=== PATIENT | female | born 1935 | race Caucasian/White ===

== ENCOUNTER 2018-09-29 18:28 | Inpatient (IN) | payer MEDICARE, OTHER ==
[2018-09-29] MEDS: ALBUTEROL 0.5% (NEB) 2.5 MG/0.5 ML AMP INH ×2 (19:00→21:01)
[2018-09-29] MEDS: IPRATROPIUM (NEB) 0.5 MG/2.5 ML AMP INH ×2 (19:00→21:01)
[2018-09-29 19:12] LABS: ADD MAN DIFF? NO
[2018-09-29 19:16] LABS: BASOPHILS % 0.3 % (0.0-2.0); EOSINOPHILS # 0.2 10^3/ul (0.0-0.5); EOSINOPHILS % 2.3 % (0.0-7.0); HEMATOCRIT 45.3 % (37.0-47.0); HEMOGLOBIN 13.8 g/dl (12.0-16.0); LYMPHOCYTES # 1.7 10^3/ul (0.8-2.9); LYMPHOCYTES % 24.3 % (15.0-51.0); MEAN CORPUSCULAR HEMOGLOBIN 25.3 pg (29.0-33.0); MEAN CORPUSCULAR HGB CONC 30.5 g/dl (32.0-37.0); MEAN PLATELET VOLUME 9.4 fl (7.4-10.4); MONOCYTE # 0.5 10^3/ul (0.3-0.9); MONOCYTES % 7.5 % (0.0-11.0); NEUTROPHIL # 4.7 10^3/ul (1.6-7.5); NEUTROPHILS % 65.3 % (39.0-77.0); PLATELET COUNT 295 10^3/UL (140-415); RED BLOOD COUNT 5.46 10^6/ul (4.20-5.40); RED CELL DISTRIBUTION WIDTH 15.5 % (11.5-14.5)
[2018-09-29 19:16] LABS: WHITE BLOOD COUNT 7.1 10^3/ul (4.8-10.8)
[2018-09-29] MEDS: METHYLPREDNISOLONE 125 MG INJ IV (19:19)
[2018-09-29] MEDS: MAGNESIUM SULFATE 2 GM/50 ML 50 ML IVPB (19:20)
[2018-09-29 19:34] LABS: ANION GAP 12 (5-13); BLOOD UREA NITROGEN 14 mg/dl (7-20); CALCIUM 9.6 mg/dl (8.4-10.2); CARBON DIOXIDE 30 mmol/L (21-31); CHLORIDE 102 mmol/L (97-110); CREATININE 0.74 mg/dl (0.44-1.00); GLUCOSE 135 mg/dl (70-220); POTASSIUM 4.4 mmol/L (3.5-5.1); SODIUM 144 mmol/L (135-144)
[2018-09-29 19:45] LABS: B-TYPE NATRIURETIC PEPTIDE 205 PG/ML (0-450); TROPONIN-I < 0.012 ng/ml (0.000-0.120)
[2018-09-29] MEDS ORDERED: PROPOFOL 100 ML (20:18)
[2018-09-29] MEDS: SUCCINYLCHOLINE CHLORIDE 100 MG/5 ML SYG IV (20:26)
[2018-09-29] MEDS: ETOMIDATE 20 MG INJ IV (20:26)
[2018-09-29] MEDS: FENTAnyl 50 MCG/ML VIAL IV (20:46)
[2018-09-29] MEDS: PROPOFOL 100 ML IV (20:52)
[2018-09-29] MEDS: CEFEPIME 2GM/50 ML (PMX) 50 ML IVPB (20:52)
[2018-09-29] MEDS: VANCOMYCIN 1 GM (PMX) 250 ML IVPB (21:18)
[2018-09-29] MEDS: SOD CHLORIDE 0.9% 1,000 ML IV (21:19)
[2018-09-29] MEDS: SODIUM CHLORIDE 0.9% 1L BAG IV* (21:27)
[2018-09-29] MEDS: MIDAZOLAM (DRIP) 50 mg/50 mL 50 ML IV (21:47)
[2018-09-29] MEDS: FENTAnyl (DRIP) 1000 mcg/100mL 100 ML IV (22:01)
[2018-09-29 22:14] LABS: AADO2 Arterial 294.5 mmHg (7.0-24.0); Arterial Base Excess -6.4 mmol/L (-3.0-3); Arterial Blood Gas Oxygen Sat 99.6 mmHG (95.0-100.0); Arterial COHb 0.2 % (0.0-3.0); Arterial Fraction of Oxyhgb 99.2 % (93.0-99.0); Arterial HCO3 17.3 mmol/L (22.0-26.0); Arterial MetHb 0.2 % (0.0-1.5); Arterial pCO2 29.6 mmhg (35-45); MODE VENT - AC; Site Right Brachial
[2018-09-29] MEDS ORDERED: ALBUTEROL HFA 8 GM INHALER INH (22:30)
[2018-09-29] MEDS ORDERED: ACETAMINOPHEN 650MG/20.3ML CUP PO (22:30)
[2018-09-29] MEDS ORDERED: NORepinephrine 8MG/250 ML (PMX 250 ML IV (22:30)
[2018-09-29] MEDS ORDERED: IPRATROPIUM (HFA) 12.9 GM INHALER INH (22:30)
[2018-09-30] MEDS ORDERED: NORepinephrine 8MG/250 ML (PMX 250 ML IV (01:30)
[2018-09-30 02:10] LABS: LACTIC ACID 8.5 mmol/L (0.5-2.0)
[2018-09-30] MEDS: SOD CHLORIDE 0.9% 250 ML IV (02:41)
[2018-09-30] MEDS: CEFTRIAXONE 1 GM/50 ML (PMX) 50 ML IVPB ×2 (06:17→17:40)
[2018-09-30] MEDS: SOD CHLORIDE 0.9% 1,000 ML IV (06:17)
[2018-09-30] MEDS: MIDAZOLAM (DRIP) 50 mg/50 mL 50 ML IV (07:22)
[2018-09-30] MEDS: AZITHROMYCIN 500MG/NS (PMX) 250 ML IVPB (07:47)
[2018-09-30 07:58] LABS: ADD MAN DIFF? NO
[2018-09-30] MEDS ORDERED: FENTAnyl (DRIP) 1000 mcg/100mL 100 ML IV (08:00)
[2018-09-30 08:08] LABS: WHITE BLOOD COUNT 9.9 10^3/ul (4.8-10.8)
[2018-09-30 08:08] LABS: BASOPHILS % 0.1 % (0.0-2.0); HEMATOCRIT 40.9 % (37.0-47.0); HEMOGLOBIN 12.5 g/dl (12.0-16.0); LYMPHOCYTES # 0.8 10^3/ul (0.8-2.9); MEAN CORPUSCULAR HEMOGLOBIN 25.2 pg (29.0-33.0); MEAN CORPUSCULAR HGB CONC 30.6 g/dl (32.0-37.0); MEAN CORPUSCULAR VOLUME 82.5 fl (82.0-101.0); MEAN PLATELET VOLUME 10.5 fl (7.4-10.4); MONOCYTE # 0.3 10^3/ul (0.3-0.9); MONOCYTES % 3.4 % (0.0-11.0); NEUTROPHIL # 8.7 10^3/ul (1.6-7.5); NEUTROPHILS % 87.9 % (39.0-77.0); PLATELET COUNT 243 10^3/UL (140-415); RED BLOOD COUNT 4.96 10^6/ul (4.20-5.40); RED CELL DISTRIBUTION WIDTH 15.8 % (11.5-14.5)
[2018-09-30 08:09] LABS: POSITIVE DIFF @See below
[2018-09-30 08:20] LABS: LACTIC ACID 7.9 mmol/L (0.5-2.0)
[2018-09-30] MEDS: FAMOTIDINE 20 MG INJ IV ×2 (08:28→20:37)
[2018-09-30 08:29] LABS: ALANINE AMINOTRANSFERASE 11 IU/L (13-69); ALBUMIN 3.4 g/dl (3.3-4.9); ALBUMIN/GLOBULIN RATIO 1.09; ALKALINE PHOSPHATASE 80 IU/L (42-121); ANION GAP 16 (5-13); ASPARTATE AMINO TRANSFERASE 31 IU/L (15-46); BILIRUBIN,INDIRECT 0.3 mg/dl (0-1.1); BILIRUBIN,TOTAL 0.3 mg/dl (0.2-1.3); BLOOD UREA NITROGEN 18 mg/dl (7-20); CALCIUM 8.6 mg/dl (8.4-10.2); CARBON DIOXIDE 18 mmol/L (21-31); CHLORIDE 110 mmol/L (97-110); CREATININE 0.72 mg/dl (0.44-1.00); GLUCOSE 189 mg/dl (70-220); POTASSIUM 4.6 mmol/L (3.5-5.1); SODIUM 144 mmol/L (135-144); TOTAL PROTEIN 6.5 g/dl (6.1-8.1)
[2018-09-30] MEDS: HEPARIN 5,000 UNIT/1 ML VIAL SC ×2 (08:29→20:38)
[2018-09-30] MEDS ORDERED: ALBUTEROL/IPRATROPIUM (NEB) 3 ML AMP HHN (10:00)
[2018-09-30] MEDS: METHYLPREDNISOLONE 125 MG INJ IV (10:33)
[2018-09-30] MEDS: ONDANSETRON 4 MG INJ IV (11:41)
[2018-09-30] MEDS: PROPOFOL 100 ML IV ×2 (11:41→20:37)
[2018-09-30] MEDS: FENTAnyl (DRIP) 1000 mcg/100mL 100 ML IV ×2 (11:41→17:46)
[2018-09-30] MEDS: FUROSEMIDE 20 MG INJ IV (13:13)
[2018-09-30] MEDS: IPRATROPIUM (HFA) 12.9 GM INHALER INH ×2 (13:24→19:32)
[2018-09-30] MEDS: ALBUTEROL HFA 8 GM INHALER INH ×2 (13:24→19:32)
[2018-10-01] MEDS: ALBUMIN HUMAN 25% 100 ML IV (00:32)
[2018-10-01] MEDS: IPRATROPIUM (HFA) 12.9 GM INHALER INH ×2 (02:07→07:35)
[2018-10-01] MEDS: ALBUTEROL HFA 8 GM INHALER INH ×2 (02:07→07:34)
[2018-10-01] MEDS: CEFTRIAXONE 1 GM/50 ML (PMX) 50 ML IVPB ×2 (05:14→17:22)
[2018-10-01 05:40] LABS: ADD MAN DIFF? NO
[2018-10-01 05:53] LABS: WHITE BLOOD COUNT 10.5 10^3/ul (4.8-10.8)
[2018-10-01 05:53] LABS: BASOPHILS % 0.1 % (0.0-2.0); EOSINOPHILS % 0.1 % (0.0-7.0); HEMATOCRIT 31.7 % (37.0-47.0); HEMOGLOBIN 10.1 g/dl (12.0-16.0); LYMPHOCYTES # 1.1 10^3/ul (0.8-2.9); LYMPHOCYTES % 10.6 % (15.0-51.0); MEAN CORPUSCULAR HEMOGLOBIN 25.3 pg (29.0-33.0); MEAN CORPUSCULAR HGB CONC 31.9 g/dl (32.0-37.0); MEAN CORPUSCULAR VOLUME 79.4 fl (82.0-101.0); MEAN PLATELET VOLUME 10.5 fl (7.4-10.4); MONOCYTE # 0.8 10^3/ul (0.3-0.9); NEUTROPHIL # 8.4 10^3/ul (1.6-7.5); NEUTROPHILS % 80.3 % (39.0-77.0); PLATELET COUNT 275 10^3/UL (140-415); RED BLOOD COUNT 3.99 10^6/ul (4.20-5.40); RED CELL DISTRIBUTION WIDTH 16.5 % (11.5-14.5)
[2018-10-01 06:08] LABS: ANION GAP 10 (5-13); BLOOD UREA NITROGEN 31 mg/dl (7-20); CALCIUM 9.1 mg/dl (8.4-10.2); CARBON DIOXIDE 21 mmol/L (21-31); CHLORIDE 112 mmol/L (97-110); CREATININE 1.06 mg/dl (0.44-1.00); GLUCOSE 138 mg/dl (70-220); POTASSIUM 4.4 mmol/L (3.5-5.1); SODIUM 143 mmol/L (135-144)
[2018-10-01] MEDS: AZITHROMYCIN 500MG/NS (PMX) 250 ML IVPB (06:36)
[2018-10-01] MEDS: PROPOFOL 100 ML IV (07:10)
[2018-10-01] MEDS: FAMOTIDINE 20 MG INJ IV ×2 (08:21→20:21)
[2018-10-01] MEDS: HEPARIN 5,000 UNIT/1 ML VIAL SC ×2 (08:30→20:22)
[2018-10-01] MEDS: FUROSEMIDE 40 MG INJ IV ×2 (09:39→17:22)
[2018-10-01 10:26] LABS: LACTIC ACID 2.8 mmol/L (0.5-2.0)
[2018-10-01 10:43] LABS: AADO2 Arterial 85.3 mmHg (7.0-24.0); Allen Test ACCEPTAB; Arterial Base Excess 0.2 mmol/L (-3.0-3); Arterial COHb 0.4 % (0.0-3.0); Arterial Fraction of Oxyhgb 95.3 % (93.0-99.0); Arterial HCO3 24.5 mmol/L (22.0-26.0); Arterial MetHb 0.3 % (0.0-1.5); Arterial pCO2 38.5 mmhg (35-45); Blood Gas PS 10; MODE VENT - CPAP; Site Left Radial
[2018-10-01] MEDS ORDERED: LORAZEPAM 2 MG INJ (12:49)
[2018-10-01] MEDS: LORAZEPAM 2 MG INJ IV (13:06)
[2018-10-01] MEDS: ALBUTEROL/IPRATROPIUM (NEB) 3 ML AMP HHN ×2 (14:58→20:12)
[2018-10-01 15:26] LABS: AADO2 Arterial 203.2 mmHg (7.0-24.0); Allen Test ACCEPTAB; Arterial Base Excess 3.1 mmol/L (-3.0-3); Arterial COHb 0.3 % (0.0-3.0); Arterial Fraction of Oxyhgb 96.6 % (93.0-99.0); Arterial HCO3 28.7 mmol/L (22.0-26.0); Arterial MetHb 0.1 % (0.0-1.5); Arterial pCO2 47.5 mmhg (35-45); Blood Gas IEPAP 10; Blood Gas PS 15/5; MODE MASK - BIPAP; Site Left Radial
[2018-10-02] MEDS: ALBUTEROL/IPRATROPIUM (NEB) 3 ML AMP HHN ×4 (01:45→20:00)
[2018-10-02] MEDS: CEFTRIAXONE 1 GM/50 ML (PMX) 50 ML IVPB ×2 (05:04→17:18)
[2018-10-02] MEDS: FUROSEMIDE 40 MG INJ IV ×2 (05:04→17:18)
[2018-10-02 05:47] LABS: ADD MAN DIFF? NO
[2018-10-02 05:53] LABS: BASOPHILS % 0.1 % (0.0-2.0); EOSINOPHILS # 0.1 10^3/ul (0.0-0.5); EOSINOPHILS % 0.7 % (0.0-7.0); HEMATOCRIT 36.1 % (37.0-47.0); LYMPHOCYTES # 1.5 10^3/ul (0.8-2.9); LYMPHOCYTES % 17.2 % (15.0-51.0); MEAN CORPUSCULAR HEMOGLOBIN 24.9 pg (29.0-33.0); MEAN CORPUSCULAR HGB CONC 30.5 g/dl (32.0-37.0); MEAN CORPUSCULAR VOLUME 81.9 fl (82.0-101.0); MONOCYTE # 0.8 10^3/ul (0.3-0.9); MONOCYTES % 9.5 % (0.0-11.0); NEUTROPHIL # 6.2 10^3/ul (1.6-7.5); NEUTROPHILS % 72.2 % (39.0-77.0); PLATELET COUNT 246 10^3/UL (140-415); RED BLOOD COUNT 4.41 10^6/ul (4.20-5.40); RED CELL DISTRIBUTION WIDTH 16.5 % (11.5-14.5)
[2018-10-02 05:53] LABS: WHITE BLOOD COUNT 8.6 10^3/ul (4.8-10.8)
[2018-10-02] MEDS: AZITHROMYCIN 500MG/NS (PMX) 250 ML IVPB (06:11)
[2018-10-02 06:32] LABS: ANION GAP 6 (5-13); BLOOD UREA NITROGEN 29 mg/dl (7-20); CALCIUM 8.6 mg/dl (8.4-10.2); CARBON DIOXIDE 34 mmol/L (21-31); CHLORIDE 101 mmol/L (97-110); CREATININE 0.83 mg/dl (0.44-1.00); GLUCOSE 118 mg/dl (70-220); POTASSIUM 3.2 mmol/L (3.5-5.1); SODIUM 141 mmol/L (135-144)
[2018-10-02] MEDS: POTASSIUM CHLORIDE 100 ML IVPB ×2 (08:26→11:41)
[2018-10-02] MEDS: FAMOTIDINE 20 MG INJ IV ×2 (08:26→20:32)
[2018-10-02] MEDS: HEPARIN 5,000 UNIT/1 ML VIAL SC ×2 (08:52→20:36)
[2018-10-03] MEDS: ALBUTEROL/IPRATROPIUM (NEB) 3 ML AMP HHN ×4 (01:26→19:51)
[2018-10-03 01:32] LABS: B-TYPE NATRIURETIC PEPTIDE 1020 PG/ML (0-450)
[2018-10-03 05:54] LABS: ANION GAP 10 (5-13); BLOOD UREA NITROGEN 32 mg/dl (7-20); CALCIUM 9.3 mg/dl (8.4-10.2); CARBON DIOXIDE 34 mmol/L (21-31); CHLORIDE 103 mmol/L (97-110); CREATININE 0.75 mg/dl (0.44-1.00); GLUCOSE 120 mg/dl (70-220); POTASSIUM 3.8 mmol/L (3.5-5.1); SODIUM 147 mmol/L (135-144)
[2018-10-03] MEDS: FUROSEMIDE 40 MG INJ IV ×2 (06:07→17:23)
[2018-10-03] MEDS: CEFTRIAXONE 1 GM/50 ML (PMX) 50 ML IVPB ×2 (06:07→17:23)
[2018-10-03 06:10] LABS: LACTATE DEHYDROGENASE 704 IU/L (313-618)
[2018-10-03 08:43] LABS: AADO2 Arterial 26.3 mmHg (7.0-24.0); Allen Test ACCEPTAB; Arterial Base Excess 7.6 mmol/L (-3.0-3); Arterial Blood Gas Oxygen Sat 91.6 mmHG (95.0-100.0); Arterial COHb 0.9 % (0.0-3.0); Arterial Fraction of Oxyhgb 90.8 % (93.0-99.0); Arterial HCO3 33.1 mmol/L (22.0-26.0); Arterial MetHb 0 % (0.0-1.5); Arterial pCO2 49.7 mmhg (35-45); MODE ROOM AIR; Site Left Radial
[2018-10-03] MEDS: FAMOTIDINE 20 MG INJ IV ×2 (09:59→20:19)
[2018-10-03] MEDS: HEPARIN 5,000 UNIT/1 ML VIAL SC ×2 (10:00→20:24)
[2018-10-04] MEDS: ALBUTEROL/IPRATROPIUM (NEB) 3 ML AMP HHN ×4 (01:09→20:00)
[2018-10-04] MEDS: FUROSEMIDE 40 MG INJ IV ×2 (05:54→17:41)
[2018-10-04] MEDS: CEFTRIAXONE 1 GM/50 ML (PMX) 50 ML IVPB ×2 (05:55→17:41)
[2018-10-04 06:10] LABS: ADD MAN DIFF? NO
[2018-10-04 06:16] LABS: WHITE BLOOD COUNT 6.8 10^3/ul (4.8-10.8)
[2018-10-04 06:16] LABS: BASOPHILS % 0.4 % (0.0-2.0); EOSINOPHILS # 0.2 10^3/ul (0.0-0.5); EOSINOPHILS % 2.9 % (0.0-7.0); HEMATOCRIT 39.7 % (37.0-47.0); HEMOGLOBIN 12.2 g/dl (12.0-16.0); LYMPHOCYTES # 1.5 10^3/ul (0.8-2.9); LYMPHOCYTES % 22.4 % (15.0-51.0); MEAN CORPUSCULAR HEMOGLOBIN 24.9 pg (29.0-33.0); MEAN CORPUSCULAR HGB CONC 30.7 g/dl (32.0-37.0); MEAN PLATELET VOLUME 10.3 fl (7.4-10.4); MONOCYTE # 0.9 10^3/ul (0.3-0.9); MONOCYTES % 12.9 % (0.0-11.0); NEUTROPHIL # 4.2 10^3/ul (1.6-7.5); NEUTROPHILS % 61.1 % (39.0-77.0); PLATELET COUNT 270 10^3/UL (140-415); RED CELL DISTRIBUTION WIDTH 15.5 % (11.5-14.5)
[2018-10-04 06:51] LABS: ALANINE AMINOTRANSFERASE 58 IU/L (13-69); ALBUMIN 4.2 g/dl (3.3-4.9); ALKALINE PHOSPHATASE 98 IU/L (42-121); ANION GAP 13 (5-13); ASPARTATE AMINO TRANSFERASE 50 IU/L (15-46); BILIRUBIN,INDIRECT 0.7 mg/dl (0-1.1); BILIRUBIN,TOTAL 0.7 mg/dl (0.2-1.3); BLOOD UREA NITROGEN 38 mg/dl (7-20); CALCIUM 9.7 mg/dl (8.4-10.2); CARBON DIOXIDE 30 mmol/L (21-31); CHLORIDE 99 mmol/L (97-110); CREATININE 0.78 mg/dl (0.44-1.00); GLUCOSE 115 mg/dl (70-220); POTASSIUM 3.3 mmol/L (3.5-5.1); SODIUM 142 mmol/L (135-144); TOTAL PROTEIN 7.7 g/dl (6.1-8.1)
[2018-10-04 07:27] LABS: MAGNESIUM 2.3 mg/dl (1.7-2.5)
[2018-10-04 07:27] LABS: PHOSPHORUS 3.9 mg/dl (2.5-4.9)
[2018-10-04] MEDS ORDERED: HALOPERIDOL 5 MG INJ IV (09:30)
[2018-10-04] MEDS: FAMOTIDINE 20 MG INJ IV ×2 (11:33→21:01)
[2018-10-04] MEDS: HEPARIN 5,000 UNIT/1 ML VIAL SC ×2 (11:34→21:01)
[2018-10-05] MEDS: HALOPERIDOL 5 MG INJ IM (00:23)
[2018-10-05] MEDS: ALBUTEROL/IPRATROPIUM (NEB) 3 ML AMP HHN ×2 (02:00→08:16)
[2018-10-05] MEDS: CEFTRIAXONE 1 GM/50 ML (PMX) 50 ML IVPB (05:42)
[2018-10-05] MEDS: FUROSEMIDE 40 MG INJ IV (05:50)
[2018-10-05 06:09] LABS: ADD MAN DIFF? NO
[2018-10-05 06:12] LABS: WHITE BLOOD COUNT 6.9 10^3/ul (4.8-10.8)
[2018-10-05 06:12] LABS: BASOPHILS % 0.4 % (0.0-2.0); EOSINOPHILS # 0.2 10^3/ul (0.0-0.5); EOSINOPHILS % 2.9 % (0.0-7.0); HEMATOCRIT 42.8 % (37.0-47.0); HEMOGLOBIN 13.1 g/dl (12.0-16.0); LYMPHOCYTES # 1.5 10^3/ul (0.8-2.9); LYMPHOCYTES % 21.8 % (15.0-51.0); MEAN CORPUSCULAR HEMOGLOBIN 24.8 pg (29.0-33.0); MEAN CORPUSCULAR HGB CONC 30.6 g/dl (32.0-37.0); MEAN CORPUSCULAR VOLUME 81.1 fl (82.0-101.0); MEAN PLATELET VOLUME 10.5 fl (7.4-10.4); MONOCYTES % 14.2 % (0.0-11.0); NEUTROPHIL # 4.2 10^3/ul (1.6-7.5); NEUTROPHILS % 60.3 % (39.0-77.0); PLATELET COUNT 309 10^3/UL (140-415); RED BLOOD COUNT 5.28 10^6/ul (4.20-5.40); RED CELL DISTRIBUTION WIDTH 15.6 % (11.5-14.5)
[2018-10-05 06:34] LABS: ANION GAP 15 (5-13); BLOOD UREA NITROGEN 40 mg/dl (7-20); CALCIUM 9.5 mg/dl (8.4-10.2); CARBON DIOXIDE 34 mmol/L (21-31); CHLORIDE 95 mmol/L (97-110); CREATININE 0.83 mg/dl (0.44-1.00); GLUCOSE 127 mg/dl (70-220); MAGNESIUM 2.3 mg/dl (1.7-2.5); PHOSPHORUS 4.2 mg/dl (2.5-4.9); POTASSIUM 3.2 mmol/L (3.5-5.1); SODIUM 144 mmol/L (135-144)
[2018-10-05] MEDS ORDERED: ETOMIDATE 20 MG INJ (07:00)
[2018-10-05] MEDS: FAMOTIDINE 20 MG INJ IV (09:02)
[2018-10-05] MEDS: HEPARIN 5,000 UNIT/1 ML VIAL SC (09:03)
== END 2018-10-05 13:13 | disposition home or self-care (01) | DRG 208 ==
LOC: ICU 21:35 → PP2 10-03 12:08 → E/R 18:28 → ICU 09-30 06:34 → PP2 10-03 22:16
PROC: 0BH17EZ Insertion of Endotracheal Airway into Trachea, Via Natural or Artificial Opening (ICD-10-PCS; principal; 2018-09-29)
PROC: 5A1945Z Respiratory Ventilation, 24-96 Consecutive Hours (ICD-10-PCS; 2018-09-29)
DX: J96.01 Acute respiratory failure with hypoxia (principal); I50.33 Acute on chronic diastolic (congestive) heart failure; J18.9 Pneumonia, unspecified organism; R57.9 Shock, unspecified; E87.2 Acidosis; J44.1 Chronic obstructive pulmonary disease with (acute) exacerbation; E86.0 Dehydration
CPT/HCPCS: 31500; 36600; 71045; 80048; 80053; 82803; 83605; 83615; 83735; 83880; 84100; 84484; 85025; 87040; 87081; 87400; 92526; 92610; 93005; 93306; 94002; 94003; 94640; 94644; 94645; 94660; 94664; 94770; 96374; 96375; 97116; 97161; 97530; 99285-25